=== PATIENT | male | born 1945 | race Caucasian/White ===

== ENCOUNTER 2024-04-14 17:35 | Emergency (ER) | payer MEDICARE, SELFPAY ==
[2024-04-14] VITALS (14 sets, daily range): BP systolic 126–175; BP diastolic 54–89; PULSE 53–71; RESP 10–18; TEMP 36.3–36.6; O2SAT 96–99
--- NOTE | 2024-04-14 17:54 | CTR_ITS ---
PROCEDURE INFORMATION: Exam: CT Head Without Contrast Exam date and time: 04/14/2024 6:03 PM Age: 78 years old Clinical indication: Altered mental status/memory loss; Additional info: Encephalopathy, altered mental status TECHNIQUE: Imaging protocol: Computed tomography of the head without contrast. Radiation optimization: All CT scans at this facility use at least one of these dose optimization techniques: automated exposure control; mA and/or kV adjustment per patient size (includes targeted exams where dose is matched to clinical indication); or iterative reconstruction. COMPARISON: No relevant prior studies available. RADIATION DOSE METRICS: Total DLP (mGy-cm): 917.88 FINDINGS: Brain: Encephalomalacia involving the right frontoparietal temporal lobe. Underlying brain parenchymal atrophy most prominent about the frontal lobes. Sequela of underlying chronic microvascular ischemic changes. No mass effect or midline shift. No acute intracranial hemorrhagic focus. Cerebral ventricles: No ventriculomegaly. Paranasal sinuses: Visualized sinuses are unremarkable. No fluid levels. Mastoid air cells: Visualized mastoid air cells are well aerated. Bones: Unremarkable. No acute fracture. Soft tissues: Unremarkable. CT/CT head wo con* [id number] IMPRESSION: No acute intracranial process. Senescent changes. If there is continued clinical concern for an acute ischemic event then follow up with a brain MRI examination.
--- NOTE | 2024-04-14 17:54 | XRR_ITS ---
PROCEDURE INFORMATION: Exam: XR Chest Exam date and time: 04/14/2024 5:57 PM Age: 78 years old Clinical indication: Other: AMS; Additional info: Weakness TECHNIQUE: Imaging protocol: Radiologic exam of the chest. Views: 1 view. COMPARISON: No relevant prior studies available. FINDINGS: Lungs: Unremarkable. No consolidation. Pleural spaces: Unremarkable. No pleural effusion. No pneumothorax. Heart/Mediastinum: Unremarkable. No cardiomegaly. Bones/joints: Unremarkable. XR/XR chest 1V portable [id number] IMPRESSION: No acute findings.
--- NOTE | 2024-04-14 18:05 | ED_ITS ---
HPI - Altered Mental Status 2 General: Chief Complaint: Altered Mental Status Stated Complaint: AMS Time Seen by Provider: 04/14/24 17:51 History of Present Illness: 78-year-old man who [facility]. According to EMS nursing staff say that he was acting differently this afternoon. He is normally more interactive and was less. When I talk to him he seems somewhat confused. He does not answer questions appropriately. He does not have any focal motor deficits. No other history is able to be obtained at this time. Related Data Previous Rx's Medication Instructions Recorded cefdinir 300 mg capsule 300 mg PO BID 5 days #10 caps 04/14/24 Allergies Allergy/AdvReac Type Severity Reaction Status Date / Time ammonia Allergy Unknown Verified 04/14/24 17:46 Bleach (Sodium Hypochlorite) Allergy Unknown Verified 04/14/24 17:46 Penicillins Allergy Unknown Verified 04/14/24 17:45 Review of Systems 2 General: Reports: ROS unobtainable due to mental status Physical Exam 2 Narrative: General: Alert, no acute distress. Skin: Warm, dry. Head: Normocephalic, atraumatic. Neck: Supple, trachea midline. Eye: Extraocular movements are intact. Ears, nose, mouth and throat: mucosa moist. Cardiovascular: Regular, Normal peripheral perfusion. Respiratory: Lungs are clear to auscultation, respirations are non-labored, breath sounds are equal, Symmetrical chest wall expansion. Gastrointestinal: Soft, Nontender, Non distended, Normal bowel sounds. Musculoskeletal: Normal ROM, no deformity. Neurological: Alert but not oriented, No focal neurological deficit observed. Psychiatric: Patient seems confused/demented. Course 2 Vital Signs: Vital signs: Vital Signs Temperature 97.3 F L 04/14/24 17:35 Pulse Rate 69 04/14/24 21:00 Respiratory Rate 11 L 04/14/24 21:00 Blood Pressure 162/83 04/14/24 21:00 Pulse Oximetry 98 04/14/24 20:30 Oxygen Delivery Me thod Room Air 04/14/24 17:35 MDM - Altered Mental Status Medical Decision Making Medical decision making: Differential diagnosis including but not limited to and based on the above HPI, review of systems and physical exam: In this patient with altered mental status: Stroke. Hypoglycemia. Metabolic encephalopathy. Infections such as pneumonia, urinary tract infection, Covid-19, Influenza. Electrolyte abnormalities such as hypernatremia. Renal failure / uremia. Hepatic encephalopathy. Hypoxemia. Hypercapnic respiratory failure. Psychosis. Drug or alcohol intoxication. Medication overdose. Orders placed to evaluate differential diagnosis based on the above differential, HPI and physical exam Chest x-ray: No acute process. Sternotomy wires in place. no infiltrate. No pneumothorax. This was reviewed and interpreted by myself the emergency room physician. I also reviewed the radiology report. CT head: Senescent changes. No acute intracranial process. no intracranial hemorrhage, no evidence of infarct. no evidence of acute fracture.This was reviewed and interpreted by myself the ER physician. Lab Review: Laboratory results were reviewed and interpreted by myself the emergency room physician. No leukocytosis. No anemia. Mean and creatinine are slightly elevated at 24 and 1.4. I do not have any previous labs know if this is his baseline. Urine is leukocyte Estrace positive and has 16 whites. This would likely explain his delirium today. I reviewed the patient's medical record. Reexamination: Patient remained stable. No increased work of breathing. Patient remains pleasantly confused. No focal motor deficits. Assessment and plan: Urinary tract infection Metabolic encephalopathy ? Rocephin in the emergency room - Discharged home - Discussed plan with patient. Answered any questions. - Evaluation and treatment of this problem were appropriate in the emergency setting. Lab Data 04/14/24 17:15 04/14/24 17:15 Radiology Impressions Chest X-Ray 04/14/24 17:54 IMPRESSION: No acute findings. Head CT 04/14/24 17:54 IMPRESSION: No acute intracranial process. Senescent changes. If there is continued clinical concern for an acute ischemic event then follow up with a brain MRI examination. Laboratory Results WBC 8.19 10^3/uL (3.29-11.43) 04/14/24 17:15 RBC 4.48 10^6/uL (3.85-5.65) 04/14/24 17:15 Hgb 13.90 g/dL (11.27-16.99) 04/14/24 17:15 Hct 42.7 % (37-53) 04/14/24 17:15 MCV 95.3 fl (82-101) 04/14/24 17:15 MCH 31.0 pg (27-33) 04/14/24 17:15 MCHC 32.6 g/dL (30-55) 04/14/24 17:15 RDW 13.3 % (12.1-15.1) 04/14/24 17:15 Plt Count 214 10^3/cmm (157-399) 04/14/24 17:15 MPV 11.4 fL (7.4-10.4) H 04/14/24 17:15 Neut % (Auto) 79.9 % 04/14/24 17:15 Lymph % (Auto) 10.7 % 04/14/24 17:15 Placer % (Auto) 7.7 % 04/14/24 17:15 Eos % (Auto) 0.4 % 04/14/24 17:15 Baso % (Auto) 0.6 % 04/14/24 17:15 Neut # (Auto) 6.54 10^3/uL (1.8-7.7) 04/14/24 17:15 Lymph # (Auto) 0.9 10^3/uL (0.8-4.8) 04/14/24 17:15 [place]acer # (Auto) 0.6 10^3/uL (0.2-0.9) 04/14/24 17:15 Eos # (Auto) 0.0 10^3/uL (0.0-0.8) 04/14/24 17:15 Baso # (Auto) 0.1 10^3/uL (0.0-0.1) 04/14/24 17:15 Nucleated RBC % (auto) 0 % 04/14/24 17:15 Nucleated RBCs # 0.0 /100WBC 04/14/24 17:15 Sodium 137 mmol/L (136-145) 04/14/24 17:15 Potassium 3.9 mmol/L (3.5-5.1) 04/14/24 17:15 Chloride 96 mmol/L (98-107) L 04/14/24 17:15 Carbon Dioxide 28 mmol/L (22-29) 04/14/24 17:15 Anion Gap 16.9 (5-19) 04/14/24 17:15 BUN 24 mg/dL (8-23) H 04/14/24 17:15 Creatinine 1.4 mg/dL (0.7-1.2) H 04/14/24 17:15 GFR Calculation Not Reportable 04/14/24 17:15 Glucose 115 mg/dL (65-115) 04/14/24 17:15 Calculated Osmolality 289 mOsm/kg (285-295) 04/14/24 17:15 Lactic Acid 2.2 mmol/L (0.5-2.2) 04/14/24 17:15 Calcium 9.2 mg/dL (8.5-10.5) 04/14/24 17:15 Total Bilirubin 0.5 mg/dL (0.15-1.2) 04/14/24 17:15 AST 16 U/L (0-40) 04/14/24 17:15 ALT 15 U/L (0-41) 04/14/24 17:15 Alkaline Phosphatase 67 U/L (40-130) 04/14/24 17:15 Total Protein 6.8 g/dL (6.6-8.7) 04/14/24 17:15 Albumin 4.2 g/dL (3.5-5.2) 04/14/24 17:15 Globulin 2.6 g/dL (1.3-4.6) 04/14/24 17:15 Urine Color Yellow (Yellow) 04/14/24 20:00 Urine Appearance Clear (CLEAR) 04/14/24 20:00 Urine pH 5.5 (5-7) 04/14/24 20:00 Ur Specific [place] 1.020 (1.005-1.030) 04/14/24 20:00 Urine Protein Trace (Negative) A 04/14/24 20:00 Urine Glucose (UA) Negative (Normal) 04/14/24 20:00 Urine Ketones Trace (Negative) 04/14/24 20:00 Urine Blood Negative (Negative) 04/14/24 20:00 Urine Nitrate Negative (Negative) 04/14/24 20:00 Urine Bilirubin Negative (Negative) 04/14/24 20:00 Urine Urobilinogen 1.0 mg/dL (Negative) 04/14/24 20:00 Ur Leukocyte Esterase 1+ (Negative) A 04/14/24 20:00 Urine RBC 0-2 /hpf (0-2) 04/14/24 20:00 Urine WBC 6-10 /hpf (0-5) 04/14/24 20:00 Ur Squamous Epith Cells 0-5 /hpf (0-5) 04/14/24 20:00 Amorphous Sediment Not Reportable 04/14/24 20:00 Urine Bacteria None seen /hpf (NONE) 04/14/24 20:00 Hyaline Casts 28.13 /lpf 04/14/24 20:00 Coronavirus (PCR) Negative (Negative) 04/14/24 18:45 Influenza A (PCR) Negative (Negative) 04/14/24 18:45 Influenza Type B (PCR) Negative (Negative) 04/14/24 18:45 RSV (PCR) Negative (Negative) 04/14/24 18:45 All radiology interpretation(s) finalized by discharge Discharge Plan Discharge Patient Disposition: Home Clinical Impression: Urinary tract infection, Acute metabolic encephalopathy Condition: Stable Prescriptions: New cefdinir 300 mg capsule 300 mg PO BID 5 Days Qty: 10 0RF Discharge Orders: Discharge ED (Routine); Ordered 04/14/24 Ordered By: Maisha Atwood Discharge Diet: Usual diet Discharge Activity: Increase activity as tolerated Patient Instructions: Altered Mental Status (ED), Urinary Tract Infection in Older Adults (ED), Opioid Safety, Pain Management Activity Restrictions/Additional Instructions: Thank you for choosing [facility] for your healthcare needs today. Please realize this is an emergency room and that we are providing you with a medical screening exam and this may not be complete and all inclusive of all the testing and or work up that you may need to determine your ailment or severity of your illness. You have been screened and evaluated and felt safe for discharge. Health conditions do change or evolve sometimes and as such it is important that you follow up with your Primary Doctor to be re checked, 3-5 days is a general good time frame for follow up. You are always welcome to return to the ED for re assessment if your symptoms are worsening or you have new concerns Coding Level of Care Code ED Facilities Engineering Manager for Hank Hutchins
[2024-04-14 18:34] LABS: Basophils # 0.1 10^3/uL (0.0-0.1); Basophils % 0.6 %; Eosinophils % 0.4 %; Hematocrit 42.7 % (37-53); Lymphocytes # 0.9 10^3/uL (0.8-4.8); Lymphocytes % 10.7 %; Mean Corpuscular HGB Conc 32.6 g/dL (30-55); Mean Corpuscular Volume 95.3 fl (82-101); Mean Platelet Volume 11.4 fL (7.4-10.4); Monocytes # 0.6 10^3/uL (0.2-0.9); Monocytes % 7.7 %; Neutrophils # 6.54 10^3/uL (1.8-7.7); Neutrophils % 79.9 %; Nucleated Red Blood Cells % 0 %; Platelet Count 214 10^3/cmm (157-399); Red Blood Count 4.48 10^6/uL (3.85-5.65); Red Cell Distribution Width 13.3 % (12.1-15.1); White Blood Count 8.19 10^3/uL (3.29-11.43)
[2024-04-14 18:45] LABS: Alanine Aminotransferase 15 U/L (0-41); Albumin Level 4.2 g/dL (3.5-5.2); Alkaline Phosphatase 67 U/L (40-130); Anion Gap 16.9 (5-19); Aspartate Amino Transferase 16 U/L (0-40); Blood Urea Nitrogen 24 mg/dL (8-23); Calcium 9.2 mg/dL (8.5-10.5); Carbon Dioxide 28 mmol/L (22-29); Chloride 96 mmol/L (98-107); Globulin 2.6 g/dL (1.3-4.6); Glucose 115 mg/dL (65-115); Osmolality Calculated 289 mOsm/kg (285-295); Potassium 3.9 mmol/L (3.5-5.1); Sodium 137 mmol/L (136-145); Total Bilirubin 0.5 mg/dL (0.15-1.2); Total Protein 6.8 g/dL (6.6-8.7)
[2024-04-14 18:46] LABS: Lactic Sepsis W/Reflex 2.2 mmol/L (0.5-2.2)
[2024-04-14 19:32] LABS: Covid PCR NEGATIVE (Negative); Influenza A NEGATIVE (Negative); Influenza B NEGATIVE (Negative); Respiratory Syncytial Virus Ce NEGATIVE (Negative)
[2024-04-14 20:08] LABS: Reflex Lactate Order REFLEX LACTIC ORDERD
[2024-04-14 20:43] LABS: Bilirubin Urine Negative (Negative); Blood Urine Negative (Negative); Glucose Urine UA Negative (Normal); Ketones Urine Trace (Negative); Leukocyte Esterase Urine 1+ (Negative); Nitrate Urine Negative (Negative); Protein Urine Trace (Negative); Urine Appearance Clear (CLEAR); Urine Color Yellow (Yellow); pH Urine 5.5 (5-7)
[2024-04-14 20:48] LABS: Bacteria Urine None Seen /hpf; Hyaline Casts Urine 28.13 /lpf; RBC Urine 0-2 /hpf (0-2); Squamous Epithelial Cell Urine 0-5 /hpf (0-5); Universal Test for UA Present (0)
[2024-04-14 21:14] LABS: UA Slide Review UA Slide Review Perf
[2024-04-14 21:25] LABS: Lactic Acid level (Lactate) 1.7 mmol/L (0.5-2.2)
[2024-04-14] MEDS: cefTRIAXone 1,000 mg SDV 1000 MG IVP (22:01)
--- NOTE | 2024-04-14 22:13 | PC.NURSE ---
Report called to Nelly Saravia at [facility] by Ora GALLARDO.
[2024-04-15 18:27] LABS: Bacillus cereus group Not Detected (NOT DETECT); Bacillus subtillis group Not Detected (NOT DETECT); Corynebacterium Not Detected (NOT DETECT); Cutibacterium acnes (P.acnes) Not Detected (NOT DETECT); Enterococcus Not Detected (NOT DETECT); Enterococcus faecalis Not Detected (NOT DETECT); Enterococcus faecium Not Detected (NOT DETECT); Lactobacillus species Not Detected (NOT DETECT); Listeria Not Detected (NOT DETECT); Listeria monocytogenes Not Detected (NOT DETECT); Micrococcus Not Detected (NOT DETECT); Pan Candida Not Detected (NOT DETECT); Pan Gram-Negative Not Detected (NOT DETECT); Staphylococcus epidermidis Not Detected (NOT DETECT); Staphylococcus lugdunensis Not Detected (NOT DETECT); Staphylococcus species Not Detected (NOT DETECT); Streptococcus agalactiae Not Detected (NOT DETECT); Streptococcus anginosus group Not Detected (NOT DETECT); Streptococcus pneumoniae Not Detected (NOT DETECT); Streptococcus pyogenes Not Detected (NOT DETECT); Streptococcus species Not Detected (NOT DETECT)
== END 2024-04-14 22:09 | disposition home or self-care (01) ==
PROVIDERS: Emergency Provider Emergency Medicine
DX: N39.0 Urinary tract infection, site not specified (principal); G93.41 Metabolic encephalopathy; Z11.52 Encounter for screening for COVID-19
CPT/HCPCS: 0241U; 36415; 70450; 71045; 80053; 81001; 83605; 85025; 87040; 87150; 87205; 96374; 99284; J0696

== ENCOUNTER 2024-04-26 19:12 | Emergency (ER) | payer MEDICARE, SELFPAY ==
[2024-04-26 19:14] VITALS: BP 164/90; PULSE 58; RESP 16; TEMP 36.6; O2SAT 95; BMI 20.3
--- NOTE | 2024-04-26 19:16 | XRR_ITS ---
PROCEDURE INFORMATION: Exam: XR Chest Exam date and time: 04/26/2024 7:19 PM Age: 78 years old Clinical indication: Other: AMS TECHNIQUE: Imaging protocol: Radiologic exam of the chest. Views: 1 view. COMPARISON: CR (CHEST, ) 04/14/2024 5:57 PM FINDINGS: Lungs: Unremarkable. No consolidation. Pleural spaces: Unremarkable. No pleural effusion. No pneumothorax. Heart/Mediastinum: Unremarkable. No cardiomegaly. Vasculature: Tortuous thoracic aorta with atherosclerotic calcifications. Bones/joints: Post median sternotomy and CABG. XR/XR chest 1V portable [id number] IMPRESSION: No acute findings.
--- NOTE | 2024-04-26 19:20 | PC.NURSE ---
pt has a history of dementia. not able to answer SI questions
--- NOTE | 2024-04-26 19:39 | W.ED.RECABL ---
HPI - Recheck/Abnormal Lab/Rx General: Chief Complaint: Recheck/Abnormal Lab/Rx Stated Complaint: LAB RECHECK Time Seen by Provider: 04/26/24 19:14 Source: EMS Mode of arrival: EMS Limitations: altered mental status History of Present Illness: 78-year-old male who was sent here from senior care for positive blood culture patient has history of dementia he has no complaints states he feels fine but is quite confused and that his baseline I did look up his blood cultures he had blood cultures done 1127 and 1 of 4 bottles were positive he has had no fevers at the senior care. Related Data Allergies Allergy/AdvReac Type Severity Reaction Status Date / Time ammonia Allergy Unknown Verified 04/26/24 19:21 Bleach (Sodium Hypochlorite) Allergy Unknown Verified 04/26/24 19:21 Penicillins Allergy Unknown Verified 04/26/24 19:21 Review of Systems General: Reports: ROS unobtainable due to mental status Physical Exam Const: COMMON NORMALS: no acute distress, healthy appearing and alert; negative for patient oriented x3 ORIENTATION/CONSCIOUSNESS: Yes oriented to person; not oriented to place and not oriented to time HENMT: COMMON NORMALS: normocephalic and atraumatic HEAD & SCALP: normocephalic and atraumatic Eye: COMMON NORMALS: Equal, round and reactive pupils present and EOMs intact bilaterally PUPIL: Yes Equal, round and reactive pupils present Neck/C-Spine: COMMON NORMALS: full ROM and supple Chest: COMMONS NORMALS: normal inspection of the chest Resp: COMMON NORMALS: normal respiratory effort, No retractions, No use of accessory muscles and clear to auscultation bilaterally AUSCULTATION: clear to auscultation bilaterally Cardio: COMMON NORMALS: regular rate, regular rhythm and No murmurs present (Cardio) RATE: regular rate RHYTHM: regular rhythm GI: COMMON NORMALS: Normal to inspection, nondistended, normoactive bowel sounds present, Soft to palpation, non-tender and no masses PALPATION: Yes Soft to palpation Extremity: COMMON NORMALS: normal to inspection and full ROM Neuro: COMMON NORMALS: moves all extremities and no focal motor deficits; negative for patient oriented x3 SENSORIUM/ORIENTATION: Yes alert, Yes oriented to person, No oriented to place and No oriented to time Psych: COMMON NORMALS: mental status grossly normal, Normal thought process present and cooperative THOUGHT PROCESS: Normal thought process present Skin: COMMON NORMALS: no rashes or lesions noted and no wounds GENERAL SKIN EXAM: no rashes or lesions noted Course Vital Signs: Vital signs: Vital Signs Temperature 97.9 F 04/26/24 19:14 Pulse Rate 58 L 04/26/24 19:14 Respiratory Rate 16 04/26/24 19:14 Blood Pressure 164/90 04/26/24 19:14 Pulse Oximetry 95 04/26/24 19:14 Oxygen Delivery Me thod Room Air 04/26/24 19:14 MDM - Recheck/Abnormal Lab/Rx Medical Decision Making Patient was sent here for positive blood culture was drawn on April 14 likely contaminant was only in 1 of 4 bottles blood work here is normal no signs of infection he stable for discharge back to [facility] Medical Records I reviewed the patient's medical records. Lab Data I reviewed the patient's lab results. 04/26/24 19:47 04/26/24 19:47 Radiology Impressions Chest X-Ray 04/26/24 19:16 IMPRESSION: No acute findings. Laboratory Results WBC 7.90 10^3/uL (3.29-11.43) 04/26/24 19:47 RBC 3.89 10^6/uL (3.85-5.65) 04/26/24 19:47 Hgb 12.10 g/dL (11.27-16.99) 04/26/24 19:47 Hct 36.5 % (37-53) L 04/26/24 19:47 MCV 93.8 fl (82-101) 04/26/24 19:47 MCH 31.1 pg (27-33) 04/26/24 19:47 MCHC 33.2 g/dL (30-55) 04/26/24 19:47 RDW 13.3 % (12.1-15.1) 04/26/24 19:47 Plt Count 201 10^3/cmm (157-399) 04/26/24 19:47 MPV 11.2 fL (7.4-10.4) H 04/26/24 19:47 Neut % (Auto) 74.4 % 04/26/24 19:47 Lymph % (Auto) 16.3 % 04/26/24 19:47 [place] % (Auto) 7.7 % 04/26/24 19:47 Eos % (Auto) 0.4 % 04/26/24 19:47 Baso % (Auto) 0.6 % 04/26/24 19:47 Neut # (Auto) 5.87 10^3/uL (1.8-7.7) 04/26/24 19:47 Lymph # (Auto) 1.3 10^3/uL (0.8-4.8) 04/26/24 19:47 [place] # (Auto) 0.6 10^3/uL (0.2-0.9) 04/26/24 19:47 Eos # (Auto) 0.0 10^3/uL (0.0-0.8) 04/26/24 19:47 Baso # (Auto) 0.1 10^3/uL (0.0-0.1) 04/26/24 19:47 Nucleated RBC % (auto) 0 % 04/26/24 19:47 Nucleated RBCs # 0.0 /100WBC 04/26/24 19:47 ESR 1 mm/hr (0-10) 04/26/24 19:47 Sodium 137 mmol/L (136-145) 04/26/24 19:47 Potassium 4.1 mmol/L (3.5-5.1) 04/26/24 19:47 Chloride 101 mmol/L (98-107) 04/26/24 19:47 Carbon Dioxide 28 mmol/L (22-29) 04/26/24 19:47 Anion Gap 12.1 (5-19) 04/26/24 19:47 BUN 27 mg/dL (8-23) H 04/26/24 19:47 Creatinine 1.1 mg/dL (0.7-1.2) 04/26/24 19:47 GFR Calculation Not Reportable 04/26/24 19:47 Glucose 86 mg/dL (65-115) 04/26/24 19:47 Calculated Osmolality 288 mOsm/kg (285-295) 04/26/24 19:47 Lactic Acid 1.1 mmol/L (0.5-2.2) 04/26/24 19:47 Calcium 8.8 mg/dL (8.5-10.5) 04/26/24 19:47 Total Bilirubin 0.5 mg/dL (0.15-1.2) 04/26/24 19:47 AST 15 U/L (0-40) 04/26/24 19:47 ALT 12 U/L (0-41) 04/26/24 19:47 Alkaline Phosphatase 61 U/L (40-130) 04/26/24 19:47 C-Reactive Protein 4.1 mg/L (0.0-4.9) 04/26/24 19:47 Total Protein 6.4 g/dL (6.6-8.7) L 04/26/24 19:47 Albumin 3.7 g/dL (3.5-5.2) 04/26/24 19:47 Globulin 2.7 g/dL (1.3-4.6) 04/26/24:47 Procalcitonin 0.05 ng/mL (0-0.5) 04/26/24 19:47 Urine Color Yellow (Yellow) 04/26/24 20:02 Urine Appearance Clear (CLEAR) 04/26/24 20:02 Urine pH 7.5 (5-7) 04/26/24 20:02 Ur Specific [place] 1.028 (1.005-1.030) 04/26/24 20:02 Urine Protein Trace (Negative) A 04/26/24 20:02 Urine Glucose (UA) 1+ (Normal) H 04/26/24 20:02 Urine Ketones 1+ (Negative) H 04/26/24 20:02 Urine Blood Negative (Negative) 04/26/24 20:02 Urine Nitrate Negative (Negative) 04/26/24 20: Urine Bilirubin Negative (Negative) 04/26/24 20:02 Urine Urobilinogen 1.0 mg/dL (Negative) 04/26/24 20:02 Ur Leukocyte Esterase Trace (Negative) A 04/26/24 20:02 Urine RBC None /hpf (0-2) 04/26/24 20:02 Urine WBC 0-4 /hpf (0-5) H 04/26/24 20:02 Ur Squamous Epith Cells 0-4 /hpf (0-5) H 04/26/24 20:02 Amorphous Sediment Not Reportable 04/26/24 20:02 Urine Bacteria None /hpf (NONE) 04/26/24 20:02 Urine Mucus 1+ /hpf 04/26/24 20:02 All radiology interpretation(s) finalized by discharge Discharge Plan Discharge Patient Disposition: Home Clinical Impression: Well adult health check Condition: Stable Discharge Orders: Discharge ED (Routine); Ordered 04/26/24 Ordered By: Evelin Garland Discharge Diet: Advance as tolerated Discharge Activity: Resume usual activity Patient Instructions: Dementia (ED) Coding Level of Care Code ED Clinical Laboratory Technologist for Hank Hutchins
[2024-04-26 19:58] LABS: Basophils # 0.1 10^3/uL (0.0-0.1); Basophils % 0.6 %; Eosinophils % 0.4 %; Hematocrit 36.5 % (37-53); Lymphocytes # 1.3 10^3/uL (0.8-4.8); Lymphocytes % 16.3 %; Mean Corpuscular HGB Conc 33.2 g/dL (30-55); Mean Corpuscular Hemoglobin 31.1 pg (27-33); Mean Corpuscular Volume 93.8 fl (82-101); Mean Platelet Volume 11.2 fL (7.4-10.4); Monocytes # 0.6 10^3/uL (0.2-0.9); Monocytes % 7.7 %; Neutrophils # 5.87 10^3/uL (1.8-7.7); Neutrophils % 74.4 %; Nucleated Red Blood Cells % 0 %; Platelet Count 201 10^3/cmm (157-399); Red Blood Count 3.89 10^6/uL (3.85-5.65); Red Cell Distribution Width 13.3 % (12.1-15.1)
[2024-04-26 20:01] LABS: Erythrocyte Sedimentation Rate 1 mm/hr (0-10)
[2024-04-26 20:15] LABS: Bilirubin Urine Negative (Negative); Blood Urine Negative (Negative); Glucose Urine UA 1+ (Normal); Ketones Urine 1+ (Negative); Leukocyte Esterase Urine Trace (Negative); Nitrate Urine Negative (Negative); Protein Urine Trace (Negative); Specific Gravity, Urine 1.028 (1.005-1.030); Urine Appearance Clear (CLEAR); Urine Color Yellow (Yellow); pH Urine 7.5 (5-7)
[2024-04-26 20:15] LABS: Alanine Aminotransferase 12 U/L (0-41); Albumin Level 3.7 g/dL (3.5-5.2); Alkaline Phosphatase 61 U/L (40-130); Anion Gap 12.1 (5-19); Aspartate Amino Transferase 15 U/L (0-40); Blood Urea Nitrogen 27 mg/dL (8-23); C Reactive Protein 4.1 mg/L (0.0-4.9); Calcium 8.8 mg/dL (8.5-10.5); Carbon Dioxide 28 mmol/L (22-29); Chloride 101 mmol/L (98-107); Creatinine Clr Calc Pharmacy 55.8906; Globulin 2.7 g/dL (1.3-4.6); Glucose 86 mg/dL (65-115); Lactic Sepsis W/Reflex 1.1 mmol/L (0.5-2.2); Osmolality Calculated 288 mOsm/kg (285-295); Potassium 4.1 mmol/L (3.5-5.1); Sodium 137 mmol/L (136-145); Total Bilirubin 0.5 mg/dL (0.15-1.2); Total Protein 6.4 g/dL (6.6-8.7)
[2024-04-26 20:22] LABS: Procalcitonin 0.05 ng/mL (0-0.5)
[2024-04-26 20:29] LABS: Add Urine Microscopic? YES; Mucus Urine 1+ /hpf; Squamous Epithelial Cell Urine 0-4 /hpf (0-5); UA Manual Slide Review YES; WBC Urine 0-4 /hpf (0-5)
[2024-04-26 20:44] VITALS: BP 166/94; PULSE 68; RESP 16; O2SAT 98
== END 2024-04-26 21:09 | disposition home or self-care (01) ==
PROVIDERS: Emergency Provider Emergency Medicine
DX: Z00.00 Encounter for general adult medical examination without abnormal findings (principal)
CPT/HCPCS: 36415; 71045; 80053; 81001; 83605; 84145; 85025; 85651; 86140; 87040; 99284

== ENCOUNTER 2024-05-07 16:07 | Outpatient (CLI) | payer MEDICARE, SELFPAY ==
[2024-05-07 16:23] LABS: Basophils % 0.5 %; Eosinophils # 0.1 10^3/uL (0.0-0.8); Eosinophils % 1.4 %; Hematocrit 33.8 % (37-53); Lymphocytes # 1.4 10^3/uL (0.8-4.8); Lymphocytes % 18.1 %; Mean Corpuscular HGB Conc 33.1 g/dL (30-55); Mean Corpuscular Hemoglobin 31.5 pg (27-33); Mean Corpuscular Volume 95.2 fl (82-101); Mean Platelet Volume 11.2 fL (7.4-10.4); Monocytes # 0.6 10^3/uL (0.2-0.9); Monocytes % 7.6 %; Neutrophils # 5.44 10^3/uL (1.8-7.7); Neutrophils % 71.7 %; Nucleated Red Blood Cells % 0 %; Platelet Count 202 10^3/cmm (157-399); Red Blood Count 3.55 10^6/uL (3.85-5.65); Red Cell Distribution Width 13.3 % (12.1-15.1); White Blood Count 7.59 10^3/uL (3.29-11.43)
[2024-05-07 17:10] LABS: Alanine Aminotransferase 9 U/L (0-41); Albumin Level 3.3 g/dL (3.5-5.2); Alkaline Phosphatase 61 U/L (40-130); Anion Gap 9.6 (5-19); Aspartate Amino Transferase 13 U/L (0-40); Blood Urea Nitrogen 13 mg/dL (8-23); Calcium 8.3 mg/dL (8.5-10.5); Carbon Dioxide 28 mmol/L (22-29); Chloride 101 mmol/L (98-107); Globulin 2.2 g/dL (1.3-4.6); Glucose 96 mg/dL (65-115); Osmolality Calculated 280 mOsm/kg (285-295); Potassium 3.6 mmol/L (3.5-5.1); Sodium 135 mmol/L (136-145); Thyroid Stimulating Hormone 1.47 uIU/mL (0.27-4.20); Total Bilirubin 0.5 mg/dL (0.15-1.2); Total Protein 5.5 g/dL (6.6-8.7)
[2024-05-08 12:11] LABS: Levetiracetam Immunoassy 29.9 mcg/mL (6.0-46.0)
== END 2024-05-07 16:08 | disposition home or self-care (01) ==
PROVIDERS: Visit Provider Family Medicine
DX: I10 Essential (primary) hypertension (principal)
CPT/HCPCS: 80053; 80177; 84443; 85025

== ENCOUNTER 2024-05-11 14:15 | Emergency (ER) | payer MEDICARE, SELFPAY ==
--- NOTE | 2024-05-11 14:16 | ECG_ITS ---
[facility] Date: 2024-05-11 Pat Name: Chaim Tolliver Department: Room: Gender: Male Ordnance Handler: : [id number] Requested By: Evelin Garland Order Number: [id number] Paramjit MD: Jeanine Lea M.D. Measurements Intervals [place] Rate: 73 P: 0 ND: 0 QRS: 18 QRSD: 113 T: 101 QT: 387 QTc: 427 Interpretive Statements possible sinus rhythm LEFT VENTRICULAR HYPERTROPHY AND ST-T CHANGE [VOLTAGE CRITERIA PLUS ST/T ABNORMALITY] POSSIBLE old INFERIOR MYOCARDIAL INFARCTION , PROBABLY OLD [30 ms Q WAVE IN II/aVF] No previous ECG available for comparison Electronically Signed On 05-11-2024 21:46:46 FIRE SPRINKLER FITTER by Jeanine Lea M.D. [email or web address] [place]
--- NOTE | 2024-05-11 14:16 | CT_ITS ---
WS: [id number] CT HEAD NONCONTRAST HISTORY: ams TECHNIQUE: Contiguous axial imaging performed through the brain. Bone and soft tissue windows. Sagitt al and coronal reformats reviewed. All CT scans at [facility] use at least one of these dose optimization techniques: automated exposure control; mA and/or kV adjustment per patient size (includ es targeted exams where dose is matched to clinical indication); or iterative reconstruction. DLP: 1074.50 mGy.cm COMPARISON: 04/14/2024 Reidentified is the large area of encephalomalacia involving the RIGHT frontal parietal and temporal lobes. Slight ex vacuo dilatation of the RIGHT lateral ventricle. No acute intracranial hemorrhage. M oderate volume loss in the cerebrum and cerebellum. No inferior displacement of the cerebellar tonsils. Ventricles: Ventricles and extra-axial spaces are dilated on the basis of atrophy. Paranasal sinuses: As visualized are clear. Mastoid air cells: Well pneumatized. Calvarium and scalp: Skull is intact with no soft tissue edema or swelling. CT/CT head wo con* [id number] IMPRESSION: 1. No acute intracranial hemorrhage or edema. 2. 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 3. Moderate cerebral and cerebellar volume loss.
--- NOTE | 2024-05-11 14:16 | XR_ITS ---
WS: [id number] PORTABLE CHEST HISTORY: cp COMPARISON: 04/26/2024 Defibrillator pad over the central thorax. Lungs are clear and well expanded. No pleural effusion or pneumothorax. Cardiac size: Normal. Mediastinum/Aorta: Scattered atherosclerotic plaque thoracic aorta. Prior CABG. No osseous abnormality seen. XR/XR chest 1V portable [id number] IMPRESSION: 1. No pneumonia. 2. Prior CABG. 3. Moderate atherosclerotic plaque thoracic aorta.
[2024-05-11 14:19] VITALS: BP 189/79; PULSE 64; RESP 14; TEMP 36.6; O2SAT 99
--- NOTE | 2024-05-11 14:26 | W.ED.AMS ---
HPI - Altered Mental Status General: Chief Complaint: Altered Mental Status Stated Complaint: STEMI Time Seen by Provider: 05/11/24 14:16 Source: EMS Mode of arrival: EMS History of Present Illness: 78-year-old male history of dementia is here from assisted living per EMS patient's had increasing decline throughout the week with increased altered mental status states that today patient has been nonverbal and extremely weak this has been going on over the last 5 to 6 days. Patient here is not answering any my questions they state that he was initially bradycardic did give him atropine and they called a STEMI alert reviewing their EKGs I do not see any signs of STEMI her EKG here is normal as well spoke to head men's tennis coach and STEMI was called off. No known recent fever. Related Data Home Medications Medication Instructions Recorded Confirmed atorvastatin 40 mg tablet 40 mg PO BEDTIME 05/11/24 05/11/24 clopidogrel 75 mg tablet 75 mg PO DAILY 05/11/24 05/11/24 diphenoxylate-atropine 2.5 2 tab PO DAILY PRN Diarrhea 05/11/24 05/11/24 mg-0.025 mg tablet divalproex 250 mg tablet,delayed 250 mg PO TID 05/11/24 05/11/24 release donepezil 10 mg tablet 10 mg PO BEDTIME 05/11/24 05/11/24 lacosamide 50 mg tablet 50 mg PO BID 05/11/24 05/11/24 levetiracetam 1,000 mg tablet 1,000 mg PO BID 05/11/24 05/11/24 lorazepam 0.5 mg tablet 0.5 mg PO BID 05/11/24 05/11/24 memantine 5 mg tablet 5 mg PO DAILY 05/11/24 05/11/24 nifedipine 30 mg tablet,extended 30 mg PO DAILY 05/11/24 05/11/24 release 24 hr risperidone 0.5 mg tablet 0.5 mg PO BID 05/11/24 05/11/24 sacubitril 24 mg-valsartan 26 mg 1 tab PO BID 05/11/24 05/11/24 tablet (Entresto) sertraline 50 mg tablet 50 mg PO DAILY 05/11/24 05/11/24 tamsulosin 0.4 mg capsule 0.4 mg PO BEDTIME 05/11/24 05/11/24 Allergies Allergy/AdvReac Type Severity Reaction Status Date / Time ammonia Allergy Unknown Verified 05/11/24 14:24 Bleach (Sodium Hypochlorite) Allergy Unknown Verified 05/11/24 14:24 Penicillins Allergy Unknown Verified 05/11/24 14:24 Review of Systems General: Reports: ROS unobtainable due to mental status Physical Exam Const: COMMON NORMALS: negative for patient oriented x3 HENMT: COMMON NORMALS: normocephalic and atraumatic HEAD & SCALP: normocephalic and atraumatic Eye: COMMON NORMALS: Equal, round and reactive pupils present and EOMs intact bilaterally PUPIL: Yes Equal, round and reactive pupils present Neck/C-Spine: COMMON NORMALS: full ROM and supple Chest: COMMONS NORMALS: normal inspection of the chest Resp: COMMON NORMALS: normal respiratory effort, No retractions, No use of accessory muscles and clear to auscultation bilaterally AUSCULTATION: clear to auscultation bilaterally Cardio: COMMON NORMALS: regular rate, regular rhythm and No murmurs present (Cardio) RATE: regular rate RHYTHM: regular rhythm GI: COMMON NORMALS: Normal to inspection, nondistended, normoactive bowel sounds present, Soft to palpation, non-tender and no masses PALPATION: Yes Soft to palpation Extremity: COMMON NORMALS: normal to inspection and full ROM Neuro: COMMON NORMALS: negative for patient oriented x3 Psych: COMMON NORMALS: negative for mental status grossly normal Skin: COMMON NORMALS: no rashes or lesions noted and no wounds GENERAL SKIN EXAM: no rashes or lesions noted Course Vital Signs: Vital signs: Vital Signs Temperature 97.9 F 05/11/24 14:19 Pulse Rate 54 L 05/11/24 14:57 Respiratory Rate 14 05/11/24 14:19 Blood Pressure 177/60 05/11/24 14:57 Pulse Oximetry 98 05/11/24 14:57 MDM - Altered Mental Status Medical Decision Making Patient presents here with altered mental status he is quite confused here along with bradycardic I spoke to his family they state that they like to put him on comfort care and hospice will discharge him back to assisted living Medical Records I reviewed the patient's medical records. Lab Data I reviewed the patient's lab results. 05/11/24 13:55 05/11/24 13:55 Radiology Impressions Chest X-Ray 05/11/24 14:16 IMPRESSION: 1. No pneumonia. 2. Prior CABG. 3. Moderate atherosclerotic plaque thoracic aorta. Head CT 05/11/24 14:16 IMPRESSION: 1. No acute intracranial hemorrhage or edema. 2. 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 3. Moderate cerebral and cerebellar volume loss. Laboratory Results WBC 5.63 10^3/uL (3.29-11.43) 05/11/24 13:55 RBC 3.67 10^6/uL (3.85-5.65) L 05/11/24 13:55 Hgb 11.70 g/dL (11.27-16.99) 05/11/24 13:55 Hct 35.3 % (37-53) L 05/11/24 13:55 MCV 96.2 fl (82-101) 05/11/24 13:55 MCH 31.9 pg (27-33) 05/11/24 13:55 MCHC 33.1 g/dL (30-55) 05/11/24 13:55 RDW 13.9 % (12.1-15.1) 05/11/24 13:55 Plt Count 194 10^3/cmm (157-399) 05/11/24 13:55 MPV 11.0 fL (7.4-10.4) H 05/11/24 13:55 Neut % (Auto) 63.7 % 05/11/24 13:55 Lymph % (Auto) 23.4 % 05/11/24 13:55 [place] % (Auto) 8.7 % 05/11/24 13:55 Eos % (Auto) 2.8 % 05/11/24 13:55 Baso % (Auto) 0.9 % 05/11/24 13:55 Neut # (Auto) 3.58 10^3/uL (1.8-7.7) 05/11/24 13:55 Lymph # (Auto) 1.3 10^3/uL (0.8-4.8) 05/11/24 13:55 [place] # (Auto) 0.5 10^3/uL (0.2-0.9) 05/11/24 13:55 Eos # (Auto) 0.2 10^3/uL (0.0-0.8) 05/11/24 13:55 Baso # (Auto) 0.1 10^3/uL (0.0-0.1) 05/11/24 13:55 Nucleated RBC % (auto) 0 % 05/11/24 13:55 Nucleated RBCs # 0.0 /100WBC 05/11/24 13:55 PT 14.40 SECONDS (12.1-14.9) 05/11/24 13:55 INR 1.08 (0.8-1.2) 05/11/24 13:55 Sodium 138 mmol/L (136-145) 05/11/24 13:55 Potassium 3.2 mmol/L (3.5-5.1) L 05/11/24 13:55 Chloride 100 mmol/L (98-107) 05/11/24 13:55 Carbon Dioxide 27 mmol/L (22-29) 05/11/24 13:55 Anion Gap 14.2 (5-19) 05/11/24 13:55 BUN 18 mg/dL (8-23) 05/11/24 13:55 Creatinine 1.2 mg/dL (0.7-1.2) 05/11/24 13:55 GFR Calculation Not Reportable 05/11/24 13:55 Glucose 97 mg/dL (65-115) 05/11/24 13:55 POC Glucose 114 mg/dL (70-110) H 05/11/24 14:40 Calculated Osmolality 288 mOsm/kg (285-295) 05/11/24 13:55 Calcium 8.4 mg/dL (8.5-10.5) L 05/11/24 13:55 Total Bilirubin 0.5 mg/dL (0.15-1.2) 05/11/24 13:55 AST 11 U/L (0-40) 05/11/24 13:55 ALT 9 U/L (0-41) 05/11/24 13:55 Alkaline Phosphatase 61 U/L (40-130) 05/11/24 13:55 Troponin T Baseline 21 ng/L (0-15) H 05/11/24 13:55 Total Protein 5.7 g/dL (6.6-8.7) L 05/11/24 13:55 Albumin 3.2 g/dL (3.5-5.2) L 05/11/24 13:55 Globulin 2.5 g/dL (1.3-4.6) 05/11/24 13:55 Lipase 25 U/L (13-60) 05/11/24 13:55 TSH 1.14 uIU/mL (0.27-4.20) 05/11/24 13:55 All radiology interpretation(s) finalized by discharge Discharge Plan Discharge Patient Disposition: Home Clinical Impression: Altered mental status Condition: Stable Prescriptions: No Action nifedipine 30 mg tablet extended release 24hr 30 mg PO DAILY atorvastatin 40 mg tablet 40 mg PO BEDTIME divalproex 250 mg tablet,delayed release (DR/EC) 250 mg PO TID donepezil 10 mg tablet 10 mg PO BEDTIME diphenoxylate-atropine 2.5-0.025 mg tablet 2 tab PO DAILY PRN (Reason: Diarrhea) clopidogrel 75 mg tablet 75 mg PO DAILY lorazepam 0.5 mg tablet 0.5 mg PO BID tamsulosin 0.4 mg capsule 0.4 mg PO BEDTIME sertraline 50 mg tablet 50 mg PO DAILY risperidone 0.5 mg tablet 0.5 mg PO BID memantine 5 mg tablet 5 mg PO DAILY levetiracetam 1,000 mg tablet 1,000 mg PO BID lacosamide 50 mg tablet 50 mg PO BID sacubitril-valsartan [Entresto] 24-26 mg tablet 1 tab PO BID Discharge Orders: Discharge ED (Routine); Ordered 05/11/24 Ordered By: Evelin Garland Discharge Diet: Advance as tolerated Discharge Activity: Resume usual activity Patient Instructions: Altered Mental Status (ED) Coding Level of Care Code ED Home Energy Consultant for Hank Hutchins
[2024-05-11 14:30] LABS: Basophils # 0.1 10^3/uL (0.0-0.1); Basophils % 0.9 %; Eosinophils # 0.2 10^3/uL (0.0-0.8); Eosinophils % 2.8 %; Hematocrit 35.3 % (37-53); Lymphocytes # 1.3 10^3/uL (0.8-4.8); Lymphocytes % 23.4 %; Mean Corpuscular HGB Conc 33.1 g/dL (30-55); Mean Corpuscular Hemoglobin 31.9 pg (27-33); Mean Corpuscular Volume 96.2 fl (82-101); Monocytes # 0.5 10^3/uL (0.2-0.9); Monocytes % 8.7 %; Neutrophils # 3.58 10^3/uL (1.8-7.7); Neutrophils % 63.7 %; Nucleated Red Blood Cells % 0 %; Platelet Count 194 10^3/cmm (157-399); Red Blood Count 3.67 10^6/uL (3.85-5.65); Red Cell Distribution Width 13.9 % (12.1-15.1); White Blood Count 5.63 10^3/uL (3.29-11.43)
--- NOTE | 2024-05-11 14:34 | PC.PHAR ---
Pt is from [place]
[2024-05-11 14:43] LABS: INR 1.08 (0.8-1.2)
[2024-05-11 14:44] LABS: Glucose Point of Care 114 mg/dL (70-110)
[2024-05-11 14:51] LABS: Troponin(5th) Baseline 21 ng/L (0-15)
[2024-05-11 14:57] VITALS: BP 177/60; PULSE 54; O2SAT 98
[2024-05-11 14:58] LABS: Alanine Aminotransferase 9 U/L (0-41); Albumin Level 3.2 g/dL (3.5-5.2); Alkaline Phosphatase 61 U/L (40-130); Anion Gap 14.2 (5-19); Aspartate Amino Transferase 11 U/L (0-40); Blood Urea Nitrogen 18 mg/dL (8-23); Calcium 8.4 mg/dL (8.5-10.5); Carbon Dioxide 27 mmol/L (22-29); Chloride 100 mmol/L (98-107); Creatinine Clr Calc Pharmacy 42.5243; Globulin 2.5 g/dL (1.3-4.6); Glucose 97 mg/dL (65-115); Lipase 25 U/L (13-60); Osmolality Calculated 288 mOsm/kg (285-295); Potassium 3.2 mmol/L (3.5-5.1); Sodium 138 mmol/L (136-145); Thyroid Stimulating Hormone 1.14 uIU/mL (0.27-4.20); Total Bilirubin 0.5 mg/dL (0.15-1.2); Total Protein 5.7 g/dL (6.6-8.7)
--- NOTE | 2024-05-11 15:38 | PC.NURSE ---
spoke with jayson regarding family request for hospice set up. [facility] RN stated that they do not set up hospice and that it is ED responsibility. this RN spoke with Trixie TORREZ and she was okay with [facility] care. Spoke with Madalyn at [facility] and they believe they will be able to accept tonight and verbalized the okay to go ahead and discharge pt back to [place]. Awaiting call back from Madalyn at [facility] currently.
--- NOTE | 2024-05-11 16:10 | PC.NURSE ---
spoke with derrek at [facility] and she stated that they were able to accept the pt and that gregg, the hospice nurse, would do his admission at [facility]. [facility] states that they are able to obtain online signatures for sister rachnaa listed in chart.
[2024-05-11 16:25] LABS: Troponin 5 2HR 19.42 ng/L (0-15)
[2024-05-11 16:26] LABS: Troponin 5 2HR Delta -1.58 ABS# (0-10)
[2024-05-11 16:38] VITALS: PULSE 45; O2SAT 97
[2024-05-11 17:08] VITALS: BP 181/70; PULSE 49; RESP 16; O2SAT 99
== END 2024-05-11 17:36 | disposition home or self-care (01) ==
PROVIDERS: Emergency Provider Emergency Medicine
DX: R41.82 Altered mental status, unspecified (principal)
CPT/HCPCS: 36415; 36416; 70450; 71045; 80053; 82962; 83690; 84443; 84484; 85025; 85610; 93005; 99285

== ENCOUNTER 2024-06-20 19:46 | Emergency (ER) | payer MEDICARE, SELFPAY ==
[2024-06-20 19:48] VITALS: BP 162/74; PULSE 59; RESP 16; TEMP 37.1; O2SAT 95; BMI 21.1
[2024-06-20 20:10] LABS: Basophils % 0.5 %; Lymphocytes # 0.9 10^3/uL (0.8-4.8); Lymphocytes % 15.5 %; Mean Corpuscular HGB Conc 32.4 g/dL (30-55); Mean Corpuscular Hemoglobin 32.1 pg (27-33); Mean Corpuscular Volume 98.9 fl (82-101); Monocytes # 0.8 10^3/uL (0.2-0.9); Monocytes % 13.9 %; Neutrophils # 4.01 10^3/uL (1.8-7.7); Neutrophils % 69.8 %; Nucleated Red Blood Cells % 0 %; Platelet Count 157 10^3/cmm (157-399); Red Blood Count 3.74 10^6/uL (3.85-5.65); Red Cell Distribution Width 13.9 % (12.1-15.1); White Blood Count 5.75 10^3/uL (3.29-11.43)
[2024-06-20 20:26] LABS: Alanine Aminotransferase 32 U/L (0-41); Albumin Level 3.5 g/dL (3.5-5.2); Alkaline Phosphatase 65 U/L (40-130); Anion Gap 16.7 (5-19); Aspartate Amino Transferase 114 U/L (0-40); Blood Urea Nitrogen 29 mg/dL (8-23); Calcium 8.2 mg/dL (8.5-10.5); Carbon Dioxide 25 mmol/L (22-29); Chloride 100 mmol/L (98-107); Creatinine Clr Calc Pharmacy 44.5295; Globulin 2.7 g/dL (1.3-4.6); Glucose 117 mg/dL (65-115); Osmolality Calculated 293 mOsm/kg (285-295); Potassium 3.7 mmol/L (3.5-5.1); Sodium 138 mmol/L (136-145); Total Bilirubin 0.4 mg/dL (0.15-1.2); Total Protein 6.2 g/dL (6.6-8.7)
[2024-06-20 20:42] LABS: Covid PCR NEGATIVE (Negative); Influenza A POSITIVE (Negative); Influenza B NEGATIVE (Negative); Respiratory Syncytial Virus Ce NEGATIVE (Negative)
[2024-06-20 20:54] VITALS: BP 165/60; PULSE 64; O2SAT 95
[2024-06-20 21:02] LABS: Bilirubin Urine 1+ (Negative); Blood Urine Trace (Negative); Glucose Urine UA Trace (Normal); Ketones Urine Trace (Negative); Leukocyte Esterase Urine Negative (Negative); Nitrate Urine Negative (Negative); Protein Urine 1+ (Negative); Urine Appearance Clear (CLEAR); Urine Color Dark Yellow (Yellow); pH Urine 5.5 (5-7)
[2024-06-20 21:07] LABS: Bacteria Urine None Seen /hpf; Hyaline Casts Urine 13.22 /lpf; RBC Urine 0-2 /hpf (0-2); Squamous Epithelial Cell Urine 0-5 /hpf (0-5); Universal Test for UA Present (0); WBC Urine 0-5 /hpf (0-5)
[2024-06-20 21:14] LABS: Specific Gravity, Urine 1.034 (1.005-1.030)
[2024-06-20 21:15] LABS: Add Urine Culture? No; Mucus Urine 1+ /hpf
--- NOTE | 2024-06-20 21:21 | ED_ITS ---
HPI - Altered Mental Status 2 General: Chief Complaint: Altered Mental Status Stated Complaint: AMS Time Seen by Provider: 06/20/24 19:49 History of Present Illness: 78-year-old man who [facility] with some aggressive behaviors today. There was some concern for UTI. On presentation here he is a bit demented but very pleasant. EMS reports no problems with behavior on the way here. Related Data Home Medications Medication Instructions Recorded Confirmed atorvastatin 40 mg tablet 40 mg PO BEDTIME 05/11/24 05/11/24 clopidogrel 75 mg tablet 75 mg PO DAILY 05/11/24 05/11/24 diphenoxylate-atropine 2.5 2 tab PO DAILY PRN Diarrhea 05/11/24 05/11/24 mg-0.025 mg tablet divalproex 250 mg tablet,delayed 250 mg PO TID 05/11/24 05/11/24 release donepezil 10 mg tablet 10 mg PO BEDTIME 05/11/24 05/11/24 lacosamide 50 mg tablet 50 mg PO BID 05/11/24 05/11/24 levetiracetam 1,000 mg tablet 1,000 mg PO BID 05/11/24 05/11/24 lorazepam 0.5 mg tablet 0.5 mg PO BID 05/11/24 05/11/24 memantine 5 mg tablet 5 mg PO DAILY 05/11/24 05/11/24 nifedipine 30 mg tablet,extended 30 mg PO DAILY 05/11/24 05/11/24 release 24 hr risperidone 0.5 mg tablet 0.5 mg PO BID 05/11/24 05/11/24 sacubitril 24 mg-valsartan 26 mg 1 tab PO BID 05/11/24 05/11/24 tablet (Entresto) sertraline 50 mg tablet 50 mg PO DAILY 05/11/24 05/11/24 tamsulosin 0.4 mg capsule 0.4 mg PO BEDTIME 05/11/24 05/11/24 Allergies Allergy/AdvReac Type Severity Reaction Status Date / Time ammonia Allergy Unknown Verified 05/11/24 14:24 Bleach (Sodium Hypochlorite) Allergy Unknown Verified 05/11/24 14:24 Penicillins Allergy Unknown Verified 05/11/24 14:24 Review of Systems 2 General: Reports: ROS unobtainable due to medical condition Physical Exam 2 Narrative: General: Alert, no acute distress. Skin: Warm, dry. Head: Normocephalic, atraumatic. Neck: Supple, trachea midline. Eye: Extraocular movements are intact. Ears, nose, mouth and throat: mucosa moist. Cardiovascular: Regular, Normal peripheral perfusion. Respiratory: Lungs are clear to auscultation, respirations are non-labored, breath sounds are equal, Symmetrical chest wall expansion. Gastrointestinal: Soft, Nontender, Non distended Musculoskeletal: Normal ROM, no deformity. Neurological: Alert No focal neurological deficit observed. Psychiatric: Pleasantly confused. Cooperative. Course 2 Vital Signs: Vital signs: Vital Signs Temperature 98.7 F 06/20/24 19:48 Pulse Rate 59 L 06/20/24 19:48 Respiratory Rate 16 06/20/24 19:48 Blood Pressure 162/74 06/20/24 19:48 Pulse Oximetry 95 06/20/24 19:48 Oxygen Delivery Me thod Room Air 06/20/24 19:48 MDM - Altered Mental Status Medical Decision Making Medical decision making: Differential diagnosis including but not limited to and based on the above HPI, review of systems and physical exam: In this patient with altered mental status: Stroke. Hypoglycemia. Metabolic encephalopathy. Infections such as pneumonia, urinary tract infection, Covid-19, Influenza. Electrolyte abnormalities such as hypernatremia. Renal failure / uremia. Hepatic encephalopathy. Hypoxemia. Hypercapnic respiratory failure. Psychosis. Drug or alcohol intoxication. Medication overdose. Orders placed to evaluate differential diagnosis based on the above differential, HPI and physical exam Lab Review: Laboratory results were reviewed and interpreted by myself the emergency room physician. No leukocytosis. No anemia. Mild elevation in his BUN and creatinine above his baseline. Also concentrated urine with no signs of infection. This would all indicate dehydration. He also has influenza. I reviewed the patient's medical record. Reexamination: Patient remained stable. No increased work of breathing. No altered mental status. No focal motor deficits. Assessment and plan: Influenza Dehydration Dementia ? Normal saline bolus in the emergency room. - Discharged home - Discussed plan with patient. Answered any questions. - Evaluation and treatment of this problem were appropriate in the emergency setting. Lab Data 06/20/24 06:56 06/20/24 06:56 Laboratory Results WBC 5.75 10^3/uL (3.29-11.43) 06/20/24 06:56 RBC 3.74 10^6/uL (3.85-5.65) L 06/20/24 06:56 Hgb 12.00 g/dL (11.27-16.99) 06/20/24 06:56 Hct 37.0 % (37-53) 06/20/24 06:56 MCV 98.9 fl (82-101) 06/20/24 06:56 MCH 32.1 pg (27-33) 06/20/24 06:56 MCHC 32.4 g/dL (30-55) 06/20/24 06:56 RDW 13.9 % (12.1-15.1) 06/20/24 06:56 Plt Count 157 10^3/cmm (157-399) 06/20/24 06:56 MPV 11.0 fL (7.4-10.4) H 06/20/24 06:56 Neut % (Auto) 69.8 % 06/20/24 06:56 Lymph % (Auto) 15.5 % 06/20/24 06:56 [place] % (Auto) 13.9 % 06/20/24 06:56 Eos % (Auto) 0.0 % 06/20/24 06:56 Baso % (Auto) 0.5 % 06/20/24 06:56 Neut # (Auto) 4.01 10^3/uL (1.8-7.7) 06/20/24 06:56 Lymph # (Auto) 0.9 10^3/uL (0.8-4.8) 06/20/24 06:56 [place] # (Auto) 0.8 10^3/uL (0.2-0.9) 06/20/24 06:56 Eos # (Auto) 0.0 10^3/uL (0.0-0.8) 06/20/24 06:56 Baso # (Auto) 0.0 10^3/uL (0.0-0.1) 06/20/24 06:56 Nucleated RBC % (auto) 0 % 06/20/24 06:56 Nucleated RBCs # 0.0 /100WBC 06/20/24 06:56 Sodium 138 mmol/L (136-145) 06/20/24 06:56 Potassium 3.7 mmol/L (3.5-5.1) 06/20/24 06:56 Chloride 100 mmol/L (98-107) 06/20/24 06:56 Carbon Dioxide 25 mmol/L (22-29) 06/20/24 06:56 Anion Gap 16.7 (5-19) 06/20/24 06:56 BUN 29 mg/dL (8-23) H 06/20/24 06:56 Creatinine 1.4 mg/dL (0.7-1.2) H 06/20/24 06:56 GFR Calculation Not Reportable 06/20/24 06:56 Glucose 117 mg/dL (65-115) H 06/20/24 06:56 Calculated Osmolality 293 mOsm/kg (285-295) 06/20/24 06:56 Lactic Acid 2.0 mmol/L (0.5-2.2) 06/20/24 06:56 Calcium 8.2 mg/dL (8.5-10.5) L 06/20/24 06:56 Total Bilirubin 0.4 mg/dL (0.15-1.2) 06/20/24 06:56 AST 114 U/L (0-40) H 06/20/24 06:56 ALT 32 U/L (0-41) 06/20/24 06:56 Alkaline Phosphatase 65 U/L (40-130) 06/20/24 06:56 Total Protein 6.2 g/dL (6.6-8.7) L 06/20/24 06:56 Albumin 3.5 g/dL (3.5-5.2) 06/20/24 06:56 Globulin 2.7 g/dL (1.3-4.6) 06/20/24 06:56 Urine Color Dark yellow (Yellow) A 06/20/24 20:50 Urine Appearance Clear (CLEAR) 06/20/24 20:50 Urine pH 5.5 (5-7) 06/20/24 20:50 Ur Specific [place] 1.034 (1.005-1.030) H 06/20/24 20:50 Urine Protein 1+ (Negative) A 06/20/24 20:50 Urine Glucose (UA) Trace (Normal) H 06/20/24 20:50 Urine Ketones Trace (Negative) 06/20/24 20:50 Urine Blood Trace (Negative) A 06/20/24 20:50 Urine Nitrate Negative (Negative) 06/20/24 20:50 Urine Bilirubin 1+ (Negative) H 06/20/24 20:50 Urine Urobilinogen 2.0 mg/dL (Negative) H 06/20/24 20:50 Ur Leukocyte Esterase Negative (Negative) 06/20/24 20:50 Urine RBC 0-2 /hpf (0-2) 06/20/24 20:50 Urine WBC 0-5 /hpf (0-5) 06/20/24 20:50 Ur Squamous Epith Cells 0-5 /hpf (0-5) 06/20/24 20:50 Amorphous Sediment Not Reportable 06/20/24 20:50 Urine Bacteria None seen /hpf (NONE) 06/20/24 20:50 Hyaline Casts 13.22 /lpf 06/20/24 20:50 Urine Mucus 1+ /hpf 06/20/24 20:50 Coronavirus (PCR) Negative (Negative) 06/20/24 19:59 Influenza A (PCR) Positive (Negative) 06/20/24 19:59 Influenza Type B (PCR) Negative (Negative) 06/20/24 19:59 RSV (PCR) Negative (Negative) 06/20/24 19:59 No radiology studies performed this visit Discharge Plan Discharge Patient Disposition: Home Clinical Impression: Influenza, Dementia, Dehydration Condition: Stable Prescriptions: No Action nifedipine 30 mg tablet extended release 24hr 30 mg PO DAILY atorvastatin 40 mg tablet 40 mg PO BEDTIME divalproex 250 mg tablet,delayed release (DR/EC) 250 mg PO TID donepezil 10 mg tablet 10 mg PO BEDTIME diphenoxylate-atropine 2.5-0.025 mg tablet 2 tab PO DAILY PRN (Reason: Diarrhea) clopidogrel 75 mg tablet 75 mg PO DAILY lorazepam 0.5 mg tablet 0.5 mg PO BID tamsulosin 0.4 mg capsule 0.4 mg PO BEDTIME sertraline 50 mg tablet 50 mg PO DAILY risperidone 0.5 mg tablet 0.5 mg PO BID memantine 5 mg tablet 5 mg PO DAILY levetiracetam 1,000 mg tablet 1,000 mg PO BID lacosamide 50 mg tablet 50 mg PO BID sacubitril-valsartan [Entresto] 24-26 mg tablet 1 tab PO BID Discharge Orders: Discharge ED (Routine); Ordered 06/20/24 Ordered By: Maisha Atwood Discharge Diet: Usual diet Discharge Activity: Increase activity as tolerated Patient Instructions: Influenza (ED), Altered Mental Status (ED), Opioid Safety, Pain Management Activity Restrictions/Additional Instructions: Patient has the flu. He also has dementia. This may result in some behavioral disturbances when he is uncomfortable. The providing physician at your [facility] should be able to provide him with anxiolytics or what ever he needs to calm him. Thank you for choosing [facility] for your healthcare needs today. Please realize this is an emergency room and that we are providing you with a medical screening exam and this may not be complete and all inclusive of all the testing and or work up that you may need to determine your ailment or severity of your illness. You have been screened and evaluated and felt safe for discharge. Health conditions do change or evolve sometimes and as such it is important that you follow up with your Primary Doctor to be re checked, 3-5 days is a general good time frame for follow up. You are always welcome to return to the ED for re assessment if your symptoms are worsening or you have new concerns Assessment and plan: Coding Level of Care Code ED Strategic Partnership Manager for Hank Hutchins
[2024-06-20] MEDS: sodium chloride 0.9% 1,000 ML 999 ML IV (21:40)
[2024-06-20 22:25] VITALS: BP 176/51; PULSE 60; O2SAT 97
== END 2024-06-20 22:27 | disposition home or self-care (01) ==
PROVIDERS: Emergency Provider Emergency Medicine
DX: J10.1 Influenza due to other identified influenza virus with other respiratory manifestations (principal); F03.90 Unspecified dementia, unspecified severity, without behavioral disturbance, psychotic disturbance, mood disturbance, and anxiety; E86.0 Dehydration; Z11.52 Encounter for screening for COVID-19; Z79.02 Long term (current) use of antithrombotics/antiplatelets
CPT/HCPCS: 36415; 80053; 81001; 83605; 85025; 87040; 87637; 96360; 99284; J7030

== ENCOUNTER 2024-07-17 10:10 | Emergency (ER) | payer OTHER, MEDICARE, SELFPAY ==
[2024-07-17 10:11] VITALS: BP 109/74; PULSE 75; RESP 18; TEMP 36.6; O2SAT 95
--- NOTE | 2024-07-17 10:17 | XRR_ITS ---
PROCEDURE INFORMATION: Exam: XR Chest Exam date and time: 07/17/2024 10:39 AM Age: 79 years old Clinical indication: Cough and dyspnea; Prior surgery; Surgery date: 6+ months; Surgery type: Sternal wires visible on cxr. ; Additional info: Dyspnea/cough TECHNIQUE: Imaging protocol: Radiologic exam of the chest. Views: 1 view. COMPARISON: 1. CR XR chest 1V portable [id number] 05/11/2024 2:25 PM 2. CR XR chest 1V portable [id number] 04/26/2024 7:19 PM 3. CR XR chest 1V portable [id number] 04/14/2024 5:57 PM FINDINGS: Lungs: Small opacity left lung base, lower left hemithorax and right lung base medially, right cardio phrenic angle region possibly due to overlap versus slight atelectasis, infiltrate, and/or scarring. Possible calcified granuloma upper right lung field. No large areas of dense lobar consolidation seen of the lungs. Pleural spaces: No large or obvious pneumothorax nor pleural effusion seen. Heart/Mediastinum: Heart size appears within normal. Vasculature: Atherosclerotic disease. Bones/joints: Prior sternal splitting procedure. Degenerative changes spine. Other findings: Patient appears rotated slightly to the right. XR/XR chest 1V portable [id number] IMPRESSION: Small opacity left lung base, lower left hemithorax and right lung base medially, right cardio phrenic angle region possibly due to overlap versus slight atelectasis, infiltrate, and/or scarring. Possible calcified granuloma upper right lung field. No large areas of dense lobar consolidation seen of the lungs.
--- NOTE | 2024-07-17 10:23 | W.ED.GENADLT ---
HPI - General Adult General: Chief complaint: General Medical Stated complaint: weakness Time Seen by Provider: 07/17/24 10:17 History of Present Illness: 79-year-old male presents emergency room via EMS with report of tachycardia and hypertension. On arrival here he has mild hypertension and is slightly bradycardic and in normal sinus rhythm he has limited review of systems. Associated symptoms: Deny chest pain or dyspnea Related Data Home Medications ?Medication ?Instructions ?Recorded ?Confirmed atorvastatin 40 mg tablet 40 mg PO BEDTIME 05/11/24 07/17/24 clopidogrel 75 mg tablet 75 mg PO DAILY 05/11/24 07/17/24 diphenoxylate-atropine 2.5 2 tab PO DAILY PRN Diarrhea 05/11/24 07/17/24 mg-0.025 mg tablet divalproex 250 mg tablet,delayed 250 mg PO TID 05/11/24 07/17/24 release donepezil 10 mg tablet 10 mg PO BEDTIME 05/11/24 07/17/24 lacosamide 50 mg tablet 50 mg PO BID 05/11/24 07/17/24 levetiracetam 1,000 mg tablet 1,000 mg PO BID 05/11/24 07/17/24 lorazepam 0.5 mg tablet 0.5 mg PO BID 05/11/24 07/17/24 memantine 5 mg tablet 5 mg PO DAILY 05/11/24 07/17/24 nifedipine 30 mg tablet,extended 30 mg PO DAILY 05/11/24 07/17/24 release 24 hr risperidone 0.5 mg tablet 0.5 mg PO BID 05/11/24 07/17/24 sacubitril 24 mg-valsartan 26 mg 1 tab PO BID 05/11/24 07/17/24 tablet (Entresto) sertraline 50 mg tablet 50 mg PO DAILY 05/11/24 07/17/24 tamsulosin 0.4 mg capsule 0.4 mg PO BEDTIME 05/11/24 07/17/24 Allergies Allergy/AdvReac Type Severity Reaction Status Date / Time ammonia Allergy Unknown Verified 05/11/24 14:24 Bleach (Sodium Hypochlorite) Allergy Unknown Verified 05/11/24 14:24 Penicillins Allergy Unknown Verified 05/11/24 14:24 Review of Systems Card: Denies: chest pain Resp: Denies: dyspnea GI: Denies: abdominal pain : Denies: dysuria, urinary frequency or urinary urgency Physical Exam Const: COMMON NORMALS: no acute distress GENERAL APPEARANCE: cooperative and comfortable ORIENTATION/CONSCIOUSNESS: Yes awake HENMT: COMMON NORMALS: normocephalic and atraumatic HEAD & SCALP: normocephalic and atraumatic Resp: COMMON NORMALS: normal respiratory effort, No retractions, No use of accessory muscles and clear to auscultation bilaterally AUSCULTATION: clear to auscultation bilaterally Cardio: COMMON NORMALS: regular rate, regular rhythm and No murmurs present (Cardio) RATE: regular rate RHYTHM: regular rhythm GI: COMMON NORMALS: Soft to palpation and No hepatosplenomegaly present AUSCULTATION: Yes normoactive bowel sounds PALPATION: Yes Soft to palpation, No Tenderness to palpation present (GI), No Guarding due to palpation present (GI) and Yes No hepatosplenomegaly present Extremity: COMMON NORMALS: normal to inspection, capillary refill normal, no clubbing, cyanosis or edema, no calf tenderness and no pedal edema Skin: COMMON NORMALS: no rashes or lesions noted GENERAL SKIN EXAM: no rashes or lesions noted Course Vital Signs: Vital signs: Vital Signs Temperature 97.8 F 07/17/24 10:11 Pulse Rate 55 L 07/17/24 10:37 Respiratory Rate 18 07/17/24 10:11 Blood Pressure 148/78 07/17/24 10:37 Pulse Oximetry 100 07/17/24 10:37 MDM - General Adult Medical Decision Making No significant findings. Patient is some dementia the review of systems is rather limited and simplified. There is some white blood cells in urine but is not convincing for infection I think it may just be contamination we will hold off on any treatment until culture results. Otherwise no other significant finding vital signs are normal he is actually little bit bradycardic at this point will discharge patient back to the retirement Lab Data 07/17/24 10:39 07/17/24 10:39 Radiology Impressions Chest X-Ray 07/17/24 10:17 IMPRESSION: Small opacity left lung base, lower left hemithorax and right lung base medially, right cardio phrenic angle region possibly due to overlap versus slight atelectasis, infiltrate, and/or scarring. Possible calcified granuloma upper right lung field. No large areas of dense lobar consolidation seen of the lungs. Laboratory Results WBC 5.24 10^3/uL (3.29-11.43) 07/17/24 10:39 RBC 3.96 10^6/uL (3.85-5.65) 07/17/24 10:39 Hgb 12.50 g/dL (11.27-16.99) 07/17/24 10:39 Hct 38.1 % (37-53) 07/17/24 10:39 MCV 96.2 fl (82-101) 07/17/24 10:39 MCH 31.6 pg (27-33) 07/17/24 10:39 MCHC 32.8 g/dL (30-55) 07/17/24 10:39 RDW 13.2 % (12.1-15.1) 07/17/24 10:39 Plt Count 189 10^3/cmm (157-399) 07/17/24 10:39 MPV 10.8 fL (7.4-10.4) H 07/17/24 10:39 Neut % (Auto) 74.6 % 07/17/24 10:39 Lymph % (Auto) 16.4 % 07/17/24 10:39 Walsh % (Auto) 7.8 % 07/17/24 10:39 Eos % (Auto) 0.2 % 07/17/24 10:39 Baso % (Auto) 0.4 % 07/17/24 10:39 Neut # (Auto) 3.91 10^3/uL (1.8-7.7) 07/17/24 10:39 Lymph # (Auto) 0.9 10^3/uL (0.8-4.8) 07/17/24 10:39 Walsh # (Auto) 0.4 10^3/uL (0.2-0.9) 07/17/24 10:39 Eos # (Auto) 0.0 10^3/uL (0.0-0.8) 07/17/24 10:39 Baso # (Auto) 0.0 10^3/uL (0.0-0.1) 07/17/24 10:39 Nucleated RBC % (auto) 0 % 07/17/24 10:39 Nucleated RBCs # 0.0 /100WBC 07/17/24 10:39 Sodium 133 mmol/L (136-145) L 07/17/24 10:39 Potassium 3.1 mmol/L (3.5-5.1) L 07/17/24 10:39 Chloride 97 mmol/L (98-107) L 07/17/24 10:39 Carbon Dioxide 26 mmol/L (22-29) 07/17/24 10:39 Anion Gap 13.1 (5-19) 07/17/24 10:39 BUN 14 mg/dL (8-23) 07/17/24 10:39 Creatinine 1.0 mg/dL (0.7-1.2) 07/17/24 10:39 GFR Calculation Not Reportable 07/17/24 10:39 Glucose 121 mg/dL (65-115) H 07/17/24 10:39 Calculated Osmolality 278 mOsm/kg (285-295) L 07/17/24 10:39 Calcium 8.6 mg/dL (8.5-10.5) 07/17/24 10:39 Total Bilirubin 0.6 mg/dL (0.15-1.2) 07/17/24 10:39 AST 12 U/L (0-40) 07/17/24 10:39 ALT 7 U/L (0-41) 07/17/24 10:39 Alkaline Phosphatase 84 U/L (40-130) 07/17/24 10:39 Total Protein 6.7 g/dL (6.6-8.7) 07/17/24 10:39 Albumin 3.3 g/dL (3.5-5.2) L 07/17/24 10:39 Globulin 3.4 g/dL (1.3-4.6) 07/17/24 10:39 Urine Color Dark yellow (Yellow) A 07/17/24 10:59 Urine Appearance Clear (CLEAR) 07/17/24 10:59 Urine pH 6.5 (5-7) 07/17/24 10:59 Ur Specific Glover 1.025 (1.005-1.030) 07/17/24 10:59 Urine Protein Trace (Negative) A 07/17/24 10:59 Urine Glucose (UA) Trace (Normal) H 07/17/24 10:59 Urine Ketones Trace (Negative) 07/17/24 10:59 Urine Blood Negative (Negative) 07/17/24 10:59 Urine Nitrate Negative (Negative) 07/17/24 10:59 Urine Bilirubin 1+ (Negative) H 07/17/24 10:59 Urine Urobilinogen >=8.0 mg/dL (Negative) H 07/17/24 10:59 Ur Leukocyte Esterase Negative (Negative) 07/17/24 10:59 Urine RBC 0-4 /hpf (0-2) H 07/17/24 10:59 Urine WBC 5-10 /hpf (0-5) H 07/17/24 10:59 Ur Squamous Epith Cells 0-4 /hpf (0-5) H 07/17/24 10:59 Amorphous Sediment Not Reportable 07/17/24 10:59 Urine Bacteria Trace /hpf (NONE) 07/17/24 10:59 Hyaline Casts 5-10 /lpf H 07/17/24 10:59 Urine Mucus 1+ /hpf 07/17/24 10:59 Influenza A (PCR) Negative (Negative) 07/17/24 10:30 Influenza Type B (PCR) Negative (Negative) 07/17/24 10:30 RSV (PCR) Negative (Negative) 07/17/24 10:30 SARS-CoV-2 (PCR) Negative (Negative) 07/17/24 10:30 All radiology interpretation(s) finalized by discharge Discharge Plan Discharge Patient Disposition: Home Clinical Impression: Weakness, Dementia Condition: Stable Prescriptions: No Action nifedipine 30 mg tablet extended release 24hr 30 mg PO DAILY atorvastatin 40 mg tablet 40 mg PO BEDTIME divalproex 250 mg tablet,delayed release (DR/EC) 250 mg PO TID donepezil 10 mg tablet 10 mg PO BEDTIME diphenoxylate-atropine 2.5-0.025 mg tablet 2 tab PO DAILY PRN (Reason: Diarrhea) clopidogrel 75 mg tablet 75 mg PO DAILY lorazepam 0.5 mg tablet 0.5 mg PO BID tamsulosin 0.4 mg capsule 0.4 mg PO BEDTIME sertraline 50 mg tablet 50 mg PO DAILY risperidone 0.5 mg tablet 0.5 mg PO BID memantine 5 mg tablet 5 mg PO DAILY levetiracetam 1,000 mg tablet 1,000 mg PO BID lacosamide 50 mg tablet 50 mg PO BID sacubitril-valsartan [Entresto] 24-26 mg tablet 1 tab PO BID Discharge Orders: Discharge ED (Routine); Ordered 07/17/24 Ordered By: Amol Murdock Discharge Diet: Usual diet Discharge Activity: Resume usual activity Patient Instructions: Opioid Safety, Pain Management Activity Restrictions/Additional Instructions: Thank you for choosing [facility] for your healthcare needs today. It is very important that you follow up as instructed or that you return to the Emergency Department should you have concerns or if your condition changes or worsens in any way. Print Language: Khmer Coding Level of Care Code ED Process Control Tech for Hank Hutchins
--- NOTE | 2024-07-17 10:28 | ECG_ITS ---
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 Measurements Intervals [place] Rate: 60 P: 96 NE: 173 QRS: 68 QRSD: 114 T: 245 QT: 438 QTc: 441 Interpretive Statements SINUS RHYTHM MODERATE INTRAVENTRICULAR CONDUCTION DELAY ST DEVIATION AND MODERATE T-WAVE ABNORMALITY, CONSIDER INFERIOR ISCHEMIA [-0.1+ mV T-WAVE IN II/aVF] Compared to ECG 05/11/2024 14:16:42 No significant change Electronically Signed On 07-18-2024 12:37:19 SEC REPORTING CONSULTANT by Jurgen Erazo M.D. [email or web address]
[2024-07-17 10:37] VITALS: BP 148/78; PULSE 55; O2SAT 100
[2024-07-17 10:48] LABS: Basophils % 0.4 %; Eosinophils % 0.2 %; Hematocrit 38.1 % (37-53); Lymphocytes # 0.9 10^3/uL (0.8-4.8); Lymphocytes % 16.4 %; Mean Corpuscular HGB Conc 32.8 g/dL (30-55); Mean Corpuscular Hemoglobin 31.6 pg (27-33); Mean Corpuscular Volume 96.2 fl (82-101); Mean Platelet Volume 10.8 fL (7.4-10.4); Monocytes # 0.4 10^3/uL (0.2-0.9); Monocytes % 7.8 %; Neutrophils # 3.91 10^3/uL (1.8-7.7); Neutrophils % 74.6 %; Nucleated Red Blood Cells % 0 %; Platelet Count 189 10^3/cmm (157-399); Red Blood Count 3.96 10^6/uL (3.85-5.65); Red Cell Distribution Width 13.2 % (12.1-15.1); White Blood Count 5.24 10^3/uL (3.29-11.43)
[2024-07-17 11:05] LABS: Bilirubin Urine 1+ (Negative); Blood Urine Negative (Negative); Glucose Urine UA Trace (Normal); Ketones Urine Trace (Negative); Leukocyte Esterase Urine Negative (Negative); Nitrate Urine Negative (Negative); Protein Urine Trace (Negative); Specific Gravity, Urine 1.025 (1.005-1.030); Urine Appearance Clear (CLEAR); Urine Color Dark Yellow (Yellow); Urobilinogen Urine >=8.0 mg/dL (Negative); pH Urine 6.5 (5-7)
[2024-07-17 11:08] LABS: Alanine Aminotransferase 7 U/L (0-41); Albumin Level 3.3 g/dL (3.5-5.2); Alkaline Phosphatase 84 U/L (40-130); Anion Gap 13.1 (5-19); Aspartate Amino Transferase 12 U/L (0-40); Blood Urea Nitrogen 14 mg/dL (8-23); Calcium 8.6 mg/dL (8.5-10.5); Carbon Dioxide 26 mmol/L (22-29); Chloride 97 mmol/L (98-107); Creatinine Clr Calc Pharmacy 52.0372; Globulin 3.4 g/dL (1.3-4.6); Glucose 121 mg/dL (65-115); Osmolality Calculated 278 mOsm/kg (285-295); Potassium 3.1 mmol/L (3.5-5.1); Sodium 133 mmol/L (136-145); Total Bilirubin 0.6 mg/dL (0.15-1.2); Total Protein 6.7 g/dL (6.6-8.7)
[2024-07-17 11:14] LABS: Add Urine Microscopic? YES; Bacteria Urine TRACE /hpf; Mucus Urine 1+ /hpf; RBC Urine 0-4 /hpf (0-2); Squamous Epithelial Cell Urine 0-4 /hpf (0-5)
[2024-07-17 11:28] LABS: Influenza A NEGATIVE (Negative); Influenza B NEGATIVE (Negative); Respiratory Syncytial Virus Ce NEGATIVE (Negative); SARS-CoV-2 PCR NEGATIVE (Negative)
--- NOTE | 2024-07-17 11:46 | PC.NURSE ---
report called to [facility], no further questions at this time. [place] denies transport, denies family able to pick pt up. contacting [facility] for EMS ride d/t dementia.
[2024-07-17 15:56] VITALS: BP 138/78; PULSE 58; O2SAT 100
== END 2024-07-17 15:57 | disposition home or self-care (01) ==
PROVIDERS: Emergency Provider Family Medicine
DX: R53.1 Weakness (principal); F03.90 Unspecified dementia, unspecified severity, without behavioral disturbance, psychotic disturbance, mood disturbance, and anxiety; Z11.52 Encounter for screening for COVID-19; Z79.02 Long term (current) use of antithrombotics/antiplatelets
CPT/HCPCS: 36415; 71045; 80053; 81001; 85025; 87637; 93005; 99285

== ENCOUNTER 2025-02-24 10:05 | Emergency (ER) | payer MEDICARE, OTHER, SELFPAY ==
[2025-02-24 10:05] VITALS: BP 125/53; PULSE 84; RESP 16; TEMP 36.6; O2SAT 97; BMI 17.6
--- NOTE | 2025-02-24 10:06 | XRR_ITS ---
PROCEDURE INFORMATION: Exam: XR Right Hip Exam date and time: 02/24/2025 10:28 AM Age: 79 years old Clinical indication: Hip pain; Right hip; Additional info: Fall TECHNIQUE: Imaging protocol: Radiologic exam of the right hip. Views: 1 view hip with pelvis when performed. COMPARISON: No relevant prior studies available. FINDINGS: Bones/joints: Unremarkable. No acute fracture. No significant arthritic changes. Soft tissues: Unremarkable. XR/XR hip RT 2-3V wo/w pel* [id number] IMPRESSION: No acute findings.
--- NOTE | 2025-02-24 10:06 | CT_ITS ---
WS: [id number] CT HEAD TECHNIQUE: Noncontrast CT of the head obtained from the skullbase to the vertex. CLINICAL INFORMATION: fall COMPARISON: 2023 DLP: 2529.[address] scans at [facility] use at least one of these dose optimization techniques: automated exposure control; mA and/or kV adjustment per patient size (includes targeted exams where dose is matched to clinical indication); or iterative reconstruction. FINDINGS: No evidence of intracranial hemorrhage or mass effect. Ventricular system and basal cisterns are patent. 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 No extra- axial fluid collections. No evidence of mass or mass effect. Paranasal sinuses and mastoid air cells are well aerated. .Normal visualized soft tissues. CT/CT head wo con* [id number] IMPRESSION: 1. No evidence of intracranial hemorrhage or mass effect. 2. No acute intracranial findings.
--- NOTE | 2025-02-24 10:06 | CT_ITS ---
WS: [id number] CT CERVICAL TRAUMA TECHNIQUE: Noncontrast CT of the cervical spine with coronal and sagittal reformatted images. CLINICAL INFORMATION: fall COMPARISON: None. DLP: 2529.[address] scans at [facility] use at least one of these dose optimization techniques: automated exposure control; mA and/or kV adjustment per patient size (includes targeted exams where dose is matched to clinical indication); or iterative reconstruction. FINDINGS: Mild cervical curve. Moderate spondylitic changes.. Normal craniocervical junction. Normal C1-C2 articulation. Dens is normal in appearance. Normal occipital condyles. No high-grade spinal canal narrowing. Normal C1 ring. No evidence of acute fracture or dislocation. Normal prevertebral soft tissues. Mastoids air cells are well aerated. CT/CT cervical spin wo con* [id number] IMPRESSION: No evidence of acute fracture or dislocation.
--- NOTE | 2025-02-24 10:08 | W.ED.FALL ---
HPI - Fall General: Chief Complaint: Fall Stated Complaint: fall - head lac - right hip Source: EMS Mode of arrival: EMS Limitations: altered mental status History of Present Illness: 79-year-old male is here from retirement he has severe dementia no history is available from him. Per EMS patient had fell ground-level hit the back of his head has an abrasion to his head also has right hip pain. Related Data Home Medications ?Medication ?Instructions ?Recorded ?Confirmed atorvastatin 40 mg tablet 40 mg PO BEDTIME 05/11/24 02/24/25 clopidogrel 75 mg tablet 75 mg PO DAILY 05/11/24 02/24/25 diphenoxylate-atropine 2.5 2 tab PO DAILY PRN Diarrhea 05/11/24 02/24/25 mg-0.025 mg tablet divalproex 250 mg tablet,delayed 250 mg PO TID 05/11/24 02/24/25 release donepezil 10 mg tablet 10 mg PO BEDTIME 05/11/24 02/24/25 levetiracetam 1,000 mg tablet 1,000 mg PO BID 05/11/24 02/24/25 lorazepam 0.5 mg tablet 0.5 mg PO TID 05/11/24 02/24/25 memantine 5 mg tablet 5 mg PO DAILY 05/11/24 02/24/25 nifedipine 30 mg tablet,extended 30 mg PO DAILY 05/11/24 02/24/25 release 24 hr risperidone 0.5 mg tablet 0.5 mg PO BID 05/11/24 02/24/25 sacubitril 24 mg-valsartan 26 mg 1 tab PO BID 05/11/24 02/24/25 tablet (Entresto) sertraline 50 mg tablet 50 mg PO DAILY 05/11/24 02/24/25 tamsulosin 0.4 mg capsule 0.4 mg PO BEDTIME 05/11/24 02/24/25 acetaminophen 500 mg tablet 500 mg PO QID PRN pain/fever 02/24/25 02/24/25 spironolactone 25 mg tablet 25 mg PO DAILY 02/24/25 02/24/25 topiramate 50 mg tablet 50 mg PO BID 02/24/25 02/24/25 Allergies Allergy/AdvReac Type Severity Reaction Status Date / Time ammonia Allergy Unknown Verified 05/11/24 14:24 Bleach (Sodium Hypochlorite) Allergy Unknown Verified 05/11/24 14:24 Penicillins Allergy Unknown Verified 05/11/24 14:24 Review of Systems General: Reports: ROS unobtainable due to mental status Physical Exam Const: COMMON NORMALS: negative for patient oriented x3 EXAM LIMITATIONS: altered mental status HENMT: COMMON NORMALS: normocephalic HEAD & SCALP: normocephalic OTHER: Abrasion over the back of the head no laceration Eye: COMMON NORMALS: Equal, round and reactive pupils present and EOMs intact bilaterally PUPIL: Yes Equal, round and reactive pupils present Neck/C-Spine: OTHER: Tenderness along C-spine Chest: COMMONS NORMALS: normal inspection of the chest Resp: COMMON NORMALS: normal respiratory effort, No retractions, No use of accessory muscles and clear to auscultation bilaterally AUSCULTATION: clear to auscultation bilaterally Cardio: COMMON NORMALS: regular rate, regular rhythm and No murmurs present (Cardio) RATE: regular rate RHYTHM: regular rhythm GI: COMMON NORMALS: Normal to inspection, nondistended, normoactive bowel sounds present, Soft to palpation, non-tender and no masses PALPATION: Yes Soft to palpation Extremity: NARRATIVE EXTREMITY EXAM: Tenderness noted to right hip distal pulses sensation intact Neuro: COMMON NORMALS: moves all extremities and no focal motor deficits; negative for patient oriented x3 Psych: COMMON NORMALS: mental status grossly normal, Normal thought process present and cooperative THOUGHT PROCESS: Normal thought process present Skin: COMMON NORMALS: no rashes or lesions noted and no wounds GENERAL SKIN EXAM: no rashes or lesions noted Course Vital Signs: Vital signs: Vital Signs Temperature 97.8 F 02/24/25 10:05 Pulse Rate 85 02/24/25 10:20 Respiratory Rate 12 02/24/25 10:20 Blood Pressure 125/53 02/24/25 10:20 Pulse Oximetry 95 02/24/25 10:20 Oxygen Delivery Me thod Room Air 02/24/25 10:05 MDM - Fall Medical Decision Making Patient presents here after a fall at the retirement. Imaging here is normal he has no signs of brain bleed or fracture of the neck. He had some right hip pain his exam here is benign imaging including the CT and x-ray are both negative as well. Rest of exam here was normal he is quite demented so no history is available from him he stable for discharge back to the retirement at this time. Medical Records I reviewed the patient's medical records. Lab Data Radiology Impressions Cervical Spine CT 02/24/25 10:06 IMPRESSION: No evidence of acute fracture or dislocation. Head CT 02/24/25 10:06 IMPRESSION: 1. No evidence of intracranial hemorrhage or mass effect. 2. No acute intracranial findings. Hip/Pelvis X-Ray 02/24/25 10:06 IMPRESSION: No acute findings. Hip CT 02/24/25 10:44 IMPRESSION: No acute fractures All radiology interpretation(s) finalized by discharge Discharge Plan Discharge Patient Disposition: Home Clinical Impression: CHI (closed head injury), Contusion of right hip, Fall Condition: Stable Prescriptions: No Action nifedipine 30 mg tablet extended release 24hr 30 mg PO DAILY atorvastatin 40 mg tablet 40 mg PO BEDTIME divalproex 250 mg tablet,delayed release (DR/EC) 250 mg PO TID donepezil 10 mg tablet 10 mg PO BEDTIME diphenoxylate-atropine 2.5-0.025 mg tablet 2 tab PO DAILY PRN (Reason: Diarrhea) clopidogrel 75 mg tablet 75 mg PO DAILY lorazepam 0.5 mg tablet 0.5 mg PO TID tamsulosin 0.4 mg capsule 0.4 mg PO BEDTIME sertraline 50 mg tablet 50 mg PO DAILY risperidone 0.5 mg tablet 0.5 mg PO BID memantine 5 mg tablet 5 mg PO DAILY levetiracetam 1,000 mg tablet 1,000 mg PO BID sacubitril-valsartan [Entresto] 24-26 mg tablet 1 tab PO BID acetaminophen 500 mg Tablet 500 mg PO QID PRN (Reason: pain/fever) spironolactone 25 mg Tablet 25 mg PO DAILY topiramate 50 mg Tablet 50 mg PO BID Discharge Orders: Discharge ED (Routine); Ordered 02/24/25 Ordered By: Evelin Garland Discharge Diet: Advance as tolerated Discharge Activity: Resume usual activity Patient Instructions: Head Injury (ED) Print Language: Ghanaian Coding Level of Care Code ED Gameplay Programmer for Hank Hutchins
[2025-02-24 10:20] VITALS: BP 125/53; PULSE 85; RESP 12; O2SAT 95
--- NOTE | 2025-02-24 10:44 | CT_ITS ---
WS: [id number] Noncontrast CT RIGHT hip TECHNIQUE: Noncontrast CT RIGHT hip with coronal and sagittal reformatted images. CLINICAL INFORMATION: fall DLP: 279.[address] scans at [facility] use at least one of these dose optimization techniques: automated exposure control; mA and/or kV adjustment per patient size (includes targeted exams where dose is matched to clinical indication); or iterative reconstruction. FINDINGS: Moderate degenerative arthritis RIGHT hip with joint space narrowing. Normal femoral head and neck. No acute fractures. Normal acetabulum. Vascular calcification. Dense sigmoid constipation. Enlarged prostate. CT/CT hip RT wo con* [id number] IMPRESSION: No acute fractures
--- NOTE | 2025-02-24 11:30 | PC.PHAR ---
Pt is from [facility]
[2025-02-24 12:13] VITALS: BP 152/111; PULSE 62; RESP 13; O2SAT 99
== END 2025-02-24 12:17 | disposition home or self-care (01) ==
PROVIDERS: Emergency Provider Emergency Medicine
DX: S09.8XXA Other specified injuries of head, initial encounter (principal); S70.01XA Contusion of right hip, initial encounter; Z79.02 Long term (current) use of antithrombotics/antiplatelets; W18.30XA Fall on same level, unspecified, initial encounter
CPT/HCPCS: 70450; 72125; 73502; 73700; 99284